=== PATIENT | female | born 1940 | race Caucasian/White ===

== ENCOUNTER 2021-01-02 09:45 | Outpatient (CLI) | payer MEDICARE | END 2021-01-02 09:46 | disposition home or self-care (01) | LOC: CSHWCC 09:45 | PROVIDERS: ATTEND Nurse Practitioner Family | DX: S81.801A Unspecified open wound, right lower leg, initial encounter (principal); S81.802A Unspecified open wound, left lower leg, initial encounter; I25.810 Atherosclerosis of coronary artery bypass graft(s) without angina pectoris; I87.2 Venous insufficiency (chronic) (peripheral); J45.21 Mild intermittent asthma with (acute) exacerbation; R60.0 Localized edema; S51.811S Laceration without foreign body of right forearm, sequela; S81.011S Laceration without foreign body, right knee, sequela; S81.821S Laceration with foreign body, right lower leg, sequela; W18.09XA Striking against other object with subsequent fall, initial encounter; Z85.3 Personal history of malignant neoplasm of breast | CPT/HCPCS: 11042; 11045; 29581; 87070; 87205; 99213; G0463 ==

== ENCOUNTER 2021-01-04 08:59 | Outpatient (CLI) | payer MEDICARE | END 2021-01-04 09:00 | disposition home or self-care (01) | LOC: CSHWCC 08:59 | PROVIDERS: ATTEND Nurse Practitioner Family | DX: S81.801A Unspecified open wound, right lower leg, initial encounter (principal); S81.802A Unspecified open wound, left lower leg, initial encounter; S81.821S Laceration with foreign body, right lower leg, sequela; W18.09XA Striking against other object with subsequent fall, initial encounter; I25.810 Atherosclerosis of coronary artery bypass graft(s) without angina pectoris; I87.2 Venous insufficiency (chronic) (peripheral); J45.21 Mild intermittent asthma with (acute) exacerbation; R60.0 Localized edema; S51.811S Laceration without foreign body of right forearm, sequela; Z85.3 Personal history of malignant neoplasm of breast | CPT/HCPCS: 29581; 99213; G0463 ==

== ENCOUNTER 2021-01-11 08:30 | Outpatient (CLI) | payer MEDICARE | END 2021-01-11 08:31 | disposition home or self-care (01) | LOC: CSHWCC 08:30 | PROVIDERS: ATTEND Nurse Practitioner Family | DX: I87.2 Venous insufficiency (chronic) (peripheral) (principal); S81.011D Laceration without foreign body, right knee, subsequent encounter; S51.811D Laceration without foreign body of right forearm, subsequent encounter; S81.801D Unspecified open wound, right lower leg, subsequent encounter; S81.802D Unspecified open wound, left lower leg, subsequent encounter; I25.810 Atherosclerosis of coronary artery bypass graft(s) without angina pectoris; J45.21 Mild intermittent asthma with (acute) exacerbation; R60.0 Localized edema; W18.09XD Striking against other object with subsequent fall, subsequent encounter; Z85.3 Personal history of malignant neoplasm of breast | CPT/HCPCS: 29581; 99213; G0463 ==

== ENCOUNTER 2021-01-17 08:09 | Outpatient (CLI) | payer MEDICARE | END 2021-01-17 08:10 | disposition home or self-care (01) | LOC: CSHWCC 08:09 | PROVIDERS: ATTEND Nurse Practitioner Family | DX: S81.801A Unspecified open wound, right lower leg, initial encounter (principal); S81.802A Unspecified open wound, left lower leg, initial encounter; I25.810 Atherosclerosis of coronary artery bypass graft(s) without angina pectoris; I87.2 Venous insufficiency (chronic) (peripheral); J45.21 Mild intermittent asthma with (acute) exacerbation; R60.0 Localized edema; S51.811S Laceration without foreign body of right forearm, sequela; S81.011S Laceration without foreign body, right knee, sequela; S81.821S Laceration with foreign body, right lower leg, sequela; W18.09XA Striking against other object with subsequent fall, initial encounter; Z85.3 Personal history of malignant neoplasm of breast | CPT/HCPCS: 29581; 97139; G0463; 99213 ==

== ENCOUNTER 2021-01-22 10:25 | Outpatient (CLI) | payer MEDICARE | END 2021-01-22 10:26 | disposition home or self-care (01) | LOC: CSHWCC 10:25 | PROVIDERS: ATTEND Nurse Practitioner Family | DX: I87.2 Venous insufficiency (chronic) (peripheral) (principal); S81.821D Laceration with foreign body, right lower leg, subsequent encounter; S51.811D Laceration without foreign body of right forearm, subsequent encounter; S81.011D Laceration without foreign body, right knee, subsequent encounter; S81.801D Unspecified open wound, right lower leg, subsequent encounter; S81.802D Unspecified open wound, left lower leg, subsequent encounter; I25.810 Atherosclerosis of coronary artery bypass graft(s) without angina pectoris; R60.0 Localized edema; J45.21 Mild intermittent asthma with (acute) exacerbation; W18.09XD Striking against other object with subsequent fall, subsequent encounter; Z85.3 Personal history of malignant neoplasm of breast | CPT/HCPCS: 29581; 97139; G0463; 99213 ==

== ENCOUNTER 2021-03-05 08:07 | Outpatient (CLI) | payer MEDICARE | END 2021-03-05 08:08 | disposition home or self-care (01) | LOC: CSHWCC 08:07 | PROVIDERS: ATTEND Nurse Practitioner Family | DX: S81.801A Unspecified open wound, right lower leg, initial encounter (principal); I25.810 Atherosclerosis of coronary artery bypass graft(s) without angina pectoris; I87.2 Venous insufficiency (chronic) (peripheral); J45.21 Mild intermittent asthma with (acute) exacerbation; R60.0 Localized edema; S51.811S Laceration without foreign body of right forearm, sequela; S81.011S Laceration without foreign body, right knee, sequela; S81.821S Laceration with foreign body, right lower leg, sequela; W18.09XA Striking against other object with subsequent fall, initial encounter; Z85.3 Personal history of malignant neoplasm of breast | CPT/HCPCS: 97139; G0463; 99213 ==

== ENCOUNTER 2021-03-12 08:58 | Outpatient (CLI) | payer MEDICARE | END 2021-03-12 08:59 | disposition home or self-care (01) | LOC: CSHWCC 08:58 | PROVIDERS: ATTEND Nurse Practitioner Family | DX: S51.811S Laceration without foreign body of right forearm, sequela (principal); S81.011S Laceration without foreign body, right knee, sequela; S81.821S Laceration with foreign body, right lower leg, sequela; S81.801D Unspecified open wound, right lower leg, subsequent encounter; I25.810 Atherosclerosis of coronary artery bypass graft(s) without angina pectoris; I87.2 Venous insufficiency (chronic) (peripheral); J45.21 Mild intermittent asthma with (acute) exacerbation; R60.0 Localized edema; Z85.3 Personal history of malignant neoplasm of breast; W18.09XD Striking against other object with subsequent fall, subsequent encounter | CPT/HCPCS: 97139; G0463; 99212 ==

== ENCOUNTER 2021-05-15 14:12 | Observation (INO) | payer MEDICARE ==
[2021-05-15 15:35] LABS: #Monocytes 0.6 10x3/uL (0.0-1.1); %Basophils 0.3 % (0.0-2.0); %Eosinophils 0.6 % (0.0-6.0); %Lymphocytes 30.6 % (18.0-47.0); %Monocytes 8.4 % (0.0-10.0); %Neutrophils 59.8 % (40.0-75.0); Hemoglobin 13.9 g/dL (12.0-15.5); Mean Corpuscular Hemoglobin 31.3 pg (27.0-33.0); Mean Corpuscular Volume 94.8 fl (81.6-98.3); Mean Platelet Volume 10.5 fl (7.4-10.4); Platelet Count 218 10x3/uL (150-450); RBC Distribution Width 15.6 % (11.5-14.5); Red Blood Cell (RBC) Count 4.44 10x6/uL (3.90-5.03); White Blood Cell (WBC) Count 6.7 10x3/uL (3.5-10.5)
[2021-05-15 15:41] LABS: ALT (SGPT) 30 U/L (8-55); AST (SGOT) 39 U/L (5-34); Albumin 3.8 g/dL (3.4-4.8); Alkaline Phosphatase 82 U/L (40-110); Anion Gap 13 mmol/L (10-20); BUN (Urea Nitrogen) 18 mg/dL (9.8-20.1); Bilirubin, Total 0.6 mg/dL (0.2-1.2); Calc. Creatinine Clearance 0 mL/min (70-130); Calcium 8.7 mg/dL (7.8-10.44); Carbon Dioxide 28 mmol/L (23-31); Chloride 99 mmol/L (98-107); Globulin 3.1 g/dL (2.4-3.5); Glucose 103 mg/dL (83-110); Potassium 4.3 mmol/L (3.5-5.1); Protein, Total 6.9 g/dL (5.8-8.1); Sodium 136 mmol/L (136-145)
[2021-05-15 16:06] LABS: CKMB 6.9 ng/mL (0-6.6)
[2021-05-15] MEDS ORDERED: Nitroglycerin 2% Ointment 1 INCH/1 GM Packet ONE (17:07)
[2021-05-15] MEDS ORDERED: Aspirin 325 MG TAB ONE (17:07)
[2021-05-15] MEDS ORDERED: Nitroglycerin 0.4 MG TAB (25 Tab Bottle) SL PRN (17:55)
[2021-05-15] MEDS ORDERED: Calcium Carbonate 500 MG ChewTAB PO PRN (18:29)
[2021-05-15] MEDS ORDERED: Senokot S 8.6-50 MG TAB PO PRN (18:29)
[2021-05-15] MEDS ORDERED: Ondansetron ODT 4 MG TAB PO PRN (18:29)
[2021-05-15] MEDS ORDERED: Acetaminophen 325 MG TAB PO PRN (18:29)
[2021-05-15 18:32] LABS: SARS-CoV-2 NAA Rapid Test Not Detected (NotDetected)
[2021-05-15] MEDS ORDERED: Furosemide 40 MG/4 ML VIAL ONE (18:45)
[2021-05-15 19:11] LABS: Magnesium 2.3 mg/dL (1.6-2.6)
[2021-05-15 19:17] LABS: Troponin I 0.039 ng/mL (< 0.028)
[2021-05-15 21:30] VITALS: BMI 24.5
[2021-05-15] MEDS ORDERED: Atorvastatin Calcium 40 MG TAB PO SCH (21:45)
[2021-05-15] MEDS ORDERED: Gabapentin 300 MG CAP PO SCH (21:45)
[2021-05-15] MEDS: Nitroglycerin 2% Ointment 1 INCH/1 GM Packet TOP SCH (22:27)
[2021-05-15 22:43] LABS: Troponin I 0.045 ng/mL (< 0.028)
[2021-05-16 04:56] LABS: Anion Gap 11 mmol/L (10-20); BUN (Urea Nitrogen) 17 mg/dL (9.8-20.1); Calc. Creatinine Clearance 65 mL/min (70-130); Calcium 8.9 mg/dL (7.8-10.44); Carbon Dioxide 29 mmol/L (23-31); Cardiac Risk 2.5 (Less than 4.5); Chloride 102 mmol/L (98-107); Cholesterol 138 mg/dl (< 200 Desired); Glucose 87 mg/dL (83-110); HDL Cholesterol 55 mg/dL (>60 Neg Risk); LDL Cholesterol, Calculated 73 mg/dL; Potassium 3.9 mmol/L (3.5-5.1); Sodium 138 mmol/L (136-145); Triglycerides 52 mg/dL (Less than 150)
[2021-05-16 05:34] LABS: #Eosinphils 0.1 10x3/uL (0.0-0.5); #Monocytes 0.7 10x3/uL (0.0-1.1); #Neutrophils 3.7 10x3/uL (1.5-8.4); %Basophils 0.6 % (0.0-2.0); %Lymphocytes 34.5 % (18.0-47.0); %Monocytes 9.8 % (0.0-10.0); Hemoglobin 13.4 g/dL (12.0-15.5); Mean Corpuscular HGB CONC 32.8 g/dL (32.0-36.0); Mean Corpuscular Hemoglobin 31.2 pg (27.0-33.0); Mean Corpuscular Volume 95.1 fl (81.6-98.3); Mean Platelet Volume 11.2 fl (7.4-10.4); Platelet Count 222 10x3/uL (150-450); RBC Distribution Width 15.8 % (11.5-14.5); Red Blood Cell (RBC) Count 4.29 10x6/uL (3.90-5.03); White Blood Cell (WBC) Count 6.8 10x3/uL (3.5-10.5)
[2021-05-16] MEDS: Nitroglycerin 2% Ointment 1 INCH/1 GM Packet TOP SCH (06:21)
[2021-05-16] MEDS: Furosemide 40 MG/4 ML VIAL SLOW IVP SCH ×2 (06:21→13:36)
[2021-05-16] MEDS: Mometasone 100 MCG/Formoterol 5 MCG 120 PUFF INHALER INH SCH ×2 (07:45→19:00)
[2021-05-16] MEDS ORDERED: Furosemide 40 MG TAB PO SCH (09:00)
[2021-05-16] MEDS ORDERED: Lisinopril 10 MG TAB PO SCH ×2 (09:00→10:30)
[2021-05-16] MEDS: Gabapentin 300 MG CAP PO SCH ×4 (09:20→22:35)
[2021-05-16] MEDS: Ezetimibe 10 MG TAB PO SCH (09:20)
[2021-05-16] MEDS: Famotidine 20 MG TAB PO SCH (09:20)
[2021-05-16] MEDS: Aspirin Chewable 81 MG TAB PO SCH (09:20)
[2021-05-16] MEDS ORDERED: hydrALAZINE 20 MG/ML VIAL SLOW IVP PRN (10:27)
[2021-05-16] MEDS ORDERED: Atorvastatin Calcium 40 MG TAB PO SCH (21:00)
[2021-05-17 04:44] LABS: Anion Gap 11 mmol/L (10-20); BUN (Urea Nitrogen) 23 mg/dL (9.8-20.1); Calc. Creatinine Clearance 51 mL/min (70-130); Calcium 8.7 mg/dL (7.8-10.44); Carbon Dioxide 29 mmol/L (23-31); Cardiac Risk 2.5 (Less than 4.5); Chloride 101 mmol/L (98-107); Cholesterol 136 mg/dl (< 200 Desired); Glucose 95 mg/dL (83-110); HDL Cholesterol 54 mg/dL (>60 Neg Risk); LDL Cholesterol, Calculated 74 mg/dL; Magnesium 2.3 mg/dL (1.6-2.6); Phosphorus 3.9 mg/dL (2.3-4.7); Potassium 3.5 mmol/L (3.5-5.1); Sodium 137 mmol/L (136-145); Triglycerides 42 mg/dL (Less than 150)
[2021-05-17 05:06] LABS: #Basophils 0.1 10x3/uL (0.0-0.2); #Eosinphils 0.1 10x3/uL (0.0-0.5); #Monocytes 0.8 10x3/uL (0.0-1.1); #Neutrophils 3.4 10x3/uL (1.5-8.4); %Basophils 0.7 % (0.0-2.0); %Eosinophils 1.3 % (0.0-6.0); %Lymphocytes 37.6 % (18.0-47.0); %Monocytes 11.1 % (0.0-10.0); Hemoglobin 14.2 g/dL (12.0-15.5); Mean Corpuscular HGB CONC 33.3 g/dL (32.0-36.0); Mean Corpuscular Hemoglobin 31.4 pg (27.0-33.0); Mean Corpuscular Volume 94.2 fl (81.6-98.3); Mean Platelet Volume 11.1 fl (7.4-10.4); Platelet Count 226 10x3/uL (150-450); RBC Distribution Width 15.8 % (11.5-14.5); Red Blood Cell (RBC) Count 4.52 10x6/uL (3.90-5.03); White Blood Cell (WBC) Count 6.9 10x3/uL (3.5-10.5)
[2021-05-17] MEDS: Furosemide 40 MG/4 ML VIAL SLOW IVP SCH ×2 (05:42→13:59)
[2021-05-17] MEDS: Aspirin Chewable 81 MG TAB PO SCH (08:02)
[2021-05-17] MEDS: Famotidine 20 MG TAB PO SCH (08:02)
[2021-05-17] MEDS: Gabapentin 300 MG CAP PO SCH ×3 (08:02→17:30)
[2021-05-17] MEDS: Ezetimibe 10 MG TAB PO SCH (08:02)
[2021-05-17] MEDS: Mometasone 100 MCG/Formoterol 5 MCG 120 PUFF INHALER INH SCH (08:10)
[2021-05-17] MEDS ORDERED: Lisinopril 20 MG TAB PO SCH (09:00)
[2021-05-17] MEDS ORDERED: Enoxaparin Sodium 40 MG/0.4 ML SYRINGE SC SCH (09:00)
[2021-05-17 12:14] LABS: Hemoglobin A1c 5.6 % (4.0-6.0)
[2021-05-17 18:39] VITALS: BP 121/72; TEMP 97.3
== END 2021-05-17 19:03 | disposition home or self-care (01) ==
LOC: CSHERS 14:12 → CSHTELE 21:27
PROVIDERS: ADMIT Family Medicine; ATTEND Family Medicine
DX: R04.0 Epistaxis (principal); I25.10 Atherosclerotic heart disease of native coronary artery without angina pectoris; I16.0 Hypertensive urgency; R09.89 Other specified symptoms and signs involving the circulatory and respiratory systems; I48.0 Paroxysmal atrial fibrillation; J45.909 Unspecified asthma, uncomplicated; Z79.51 Long term (current) use of inhaled steroids; B02.29 Other postherpetic nervous system involvement; Z79.899 Other long term (current) drug therapy; E78.5 Hyperlipidemia, unspecified; Z20.822 Contact with and (suspected) exposure to COVID-19
CPT/HCPCS: 71045; 80048 ×2; 80061 ×2; 82553; 83036; 83735 ×2; 83880; 84100; 84484 ×2; 85025 ×2; 93005; 93306; 94640 ×2; 94664; 94760; 96372; 96374; 96376 ×2; 97139; 99285; G0378 ×4; U0002; 36415; 80053; 84443; J1650; J1940

== ENCOUNTER 2022-01-24 13:16 | Outpatient (CLI) | payer MEDICARE | END 2022-01-24 13:17 | disposition home or self-care (01) | LOC: CSHLAB 13:16 | PROVIDERS: ATTEND Internal Medicine Critical Care Medicine | DX: Z20.822 Contact with and (suspected) exposure to COVID-19 (principal) | CPT/HCPCS: 87811 ==

== ENCOUNTER 2022-01-29 12:37 | Outpatient (CLI) | payer MEDICARE | END 2022-01-29 12:38 | disposition home or self-care (01) | LOC: CSHCP 12:37 | PROVIDERS: ATTEND Internal Medicine Critical Care Medicine | DX: R06.02 Shortness of breath (principal); J45.20 Mild intermittent asthma, uncomplicated; J43.2 Centrilobular emphysema; I51.7 Cardiomegaly; I77.89 Other specified disorders of arteries and arterioles; R94.2 Abnormal results of pulmonary function studies | CPT/HCPCS: 71250; 94060; 94726; 94729; 94760 ==

== ENCOUNTER 2022-04-17 08:13 | Outpatient (CLI) | payer MEDICARE | END 2022-04-17 08:14 | disposition home or self-care (01) | LOC: CSHWCC 08:13 | PROVIDERS: ATTEND Nurse Practitioner Family | DX: S81.802D Unspecified open wound, left lower leg, subsequent encounter (principal); R60.0 Localized edema | CPT/HCPCS: 11042; 97139; G0463; 99213 ==

== ENCOUNTER 2022-04-24 08:06 | Outpatient (CLI) | payer MEDICARE | END 2022-04-24 08:07 | disposition home or self-care (01) | LOC: CSHWCC 08:06 | PROVIDERS: ATTEND Nurse Practitioner Family | DX: S81.802S Unspecified open wound, left lower leg, sequela (principal); R60.0 Localized edema | CPT/HCPCS: 10140; 11042 ==

== ENCOUNTER 2022-05-07 12:54 | Outpatient (CLI) | payer MEDICARE | END 2022-05-07 12:55 | disposition home or self-care (01) | LOC: CSHWCC 12:54 | PROVIDERS: ATTEND Nurse Practitioner Family | DX: S81.802D Unspecified open wound, left lower leg, subsequent encounter (principal); R60.0 Localized edema | CPT/HCPCS: 11042; 11045; 29581 ==

== ENCOUNTER 2022-05-14 15:15 | Outpatient (CLI) | payer MEDICARE | END 2022-05-14 15:16 | disposition home or self-care (01) | LOC: CSHWCC 15:15 | PROVIDERS: ATTEND Nurse Practitioner Family | DX: S81.801D Unspecified open wound, right lower leg, subsequent encounter (principal); S81.802D Unspecified open wound, left lower leg, subsequent encounter; R60.0 Localized edema ==

== ENCOUNTER 2022-05-21 14:27 | Outpatient (CLI) | payer MEDICARE | END 2022-05-21 14:28 | disposition home or self-care (01) | LOC: CSHWCC 14:27 | PROVIDERS: ATTEND Nurse Practitioner Family | DX: S81.801S Unspecified open wound, right lower leg, sequela (principal); R60.0 Localized edema | CPT/HCPCS: 11042; 11045 ==

== ENCOUNTER 2022-06-11 12:47 | Outpatient (CLI) | payer MEDICARE | END 2022-06-11 12:48 | disposition home or self-care (01) | LOC: CSHWCC 12:47 | PROVIDERS: ATTEND Nurse Practitioner Family | DX: S81.801S Unspecified open wound, right lower leg, sequela (principal); R60.0 Localized edema | CPT/HCPCS: 29581 ==

== ENCOUNTER 2022-07-01 09:53 | Outpatient (CLI) | payer MEDICARE | END 2022-07-01 09:54 | disposition home or self-care (01) | LOC: CSHWCC 09:53 | PROVIDERS: ATTEND Nurse Practitioner Family | DX: R60.0 Localized edema (principal) | CPT/HCPCS: 99212; G0463 ==

== ENCOUNTER 2024-12-14 15:13 | Outpatient (CLI) | payer MEDICARE | END 2024-12-14 15:14 | disposition home or self-care (01) | LOC: CSHWCC 15:13 | PROVIDERS: ATTEND Nurse Practitioner Family | DX: S81.811D Laceration without foreign body, right lower leg, subsequent encounter (principal); I73.9 Peripheral vascular disease, unspecified | CPT/HCPCS: 11042 ==

== ENCOUNTER 2024-12-22 13:47 | Outpatient (CLI) | payer MEDICARE | END 2024-12-22 13:48 | disposition home or self-care (01) | LOC: CSHWCC 13:47 | PROVIDERS: ATTEND Nurse Practitioner Family | DX: S81.811D Laceration without foreign body, right lower leg, subsequent encounter (principal); I73.9 Peripheral vascular disease, unspecified | CPT/HCPCS: 99212; G0463 ==